=== PATIENT | male | born 1980 | race Caucasian/White ===

== ENCOUNTER → 2016-05-31 | Outpatient (CLI) | payer BC ==
[~2016-05-31] MED LIST: ATV/1 PO; FLVHFA110 INH; IBUP-103 PO; LEVO-14 PO; LISI-461 PO; MONT1TAB5 PO; OXYM0.0592; VNTHFA/IN INH
--- NOTE | 2016-05-31 10:53 | DIAGNOSTIC IMAGING REPORT ---
TESTICULAR ULTRASOUND CLINICAL HISTORY: TESTICULAR PAIN COMPARISON STUDY: No previous studies for comparison. FINDINGS: The right testis measures 47 x 25 x 21 mm. The left testis measures 44 x 28 x 21 mm. No intratesticular masses were visualized. There is no evidence of testicular torsion. There is a 6 mm right-sided epididymal cyst. There is no evidence of epididymal hyperemia. IMPRESSION: 1. No evidence of intratesticular mass. No evidence of testicular torsion 2. 6 mm right-sided epididymal cyst Electronically signed by: Abdullahi Loera M.D. 05/31/2016 10:51 AM Dictated Date/Time: 05/31/2016 10:50 AM
== END | disposition home or self-care (01) ==
LOC: C.ULTRBC 10:26
PROVIDERS: ATTEND Family Medicine
DX: N50.3 Cyst of epididymis (principal)

== ENCOUNTER → 2016-08-20 | Outpatient (CLI) | payer BC ==
--- NOTE | 2016-08-20 09:01 | DIAGNOSTIC IMAGING REPORT ---
THYROID ULTRASONOGRAPHY CLINICAL HISTORY: HYPERTHYROIDISM COMPARISON STUDY: No previous studies for comparison. FINDINGS: The right lobe of the thyroid measures 3.9 x 1.1 x 1.4 cm. There is a 14 mm calcified nodule within or medially posterior to the right lobe of the thyroid. It is difficult to determine with this is intrinsic or extrinsic to the thyroid gland. The left lobe of thyroid measures 6.7 x 1.7 x 3.4 cm. There is a large circumscribed left lobe thyroid nodule which is predominately solid. This contains a few echogenic foci, likely represent colloid although calcifications could appear similar. This nodule measures 4.8 cm in maximal diameter. IMPRESSION: 1. Dominant 4.8 cm left lobe thyroid nodule. Fine-needle aspiration biopsy is recommended follow-up 2. 14 mm nodule, within or abutting the posterior aspect of the right lobe of the thyroid. This nodule contains calcifications. Fine needle aspiration biopsy is recommended. Electronically signed by: Abdullahi Loera M.D. 08/20/2016 8:59 AM Dictated Date/Time: 08/20/2016 8:57 AM
== END | disposition home or self-care (01) ==
LOC: C.ULTRBC 07:56
PROVIDERS: ATTEND Family Medicine
DX: E05.90 Thyrotoxicosis, unspecified without thyrotoxic crisis or storm (principal); R94.6 Abnormal results of thyroid function studies; E04.2 Nontoxic multinodular goiter

== ENCOUNTER → 2016-08-26 | Outpatient (CLI) | payer BC ==
--- NOTE | 2016-08-26 11:03 | Discharge Instructions ---
Discharge Instructions Procedure Procedure Date: Aug 26, 2016. Reason for visit: Thyroid Lesion. Discharge Discharge Date: Aug 26, 2016. Discharge Diagnosis: bilateral thyroid nodules Instructions Activity Recommendations: No limitations Return to School/Work: no limitations Recommended Home Diet: Resume Previous Diet Provider Instructions: ACTIVITY RECOMMENDATIONS: * Rest today. * Resume regular activity in one day. MEDICATIONS: * May take Tylenol or Ibuprofen as needed for pain. DIET: * Resume previous diet. SPECIAL CARE INSTRUCTIONS: Call your doctor if: * Temperature above 101 degrees F. * Pain not relieved by pain medicine ordered. * Increased drainage or redness from incision. * Notify your doctor with any questions or concerns. Call your doctor or go to the nearest Emergency Department if you experience: * Increased chest pain or shortness of breath. FOLLOW UP VISIT: Follow-up with Referring Physician as scheduled. Allergies Coded Allergies: Penicillins (Verified Allergy, Unknown, Unk, 04/14/16) Justino Philip Recommendations: Call your doctor if: * Temperature above 101 degrees * Pain not relieved by pain medicine ordered * There is increased drainage or redness from any incision * You have any unanswered questions or concerns. Your Doctors Instructions noted above were prepared by provider Kayden Calderon. Patient Signature Section: Patient Instructions Signature Page Jean-Pierre Carbajal Patient (or Guardian) Signature/Date: I have read and understand the instructions given to me by my caregivers. Caregiver/RN/Doctor Signature/Date: The above-named patient and/or guardian has received patient instructions on this date. + Original Patient Signature Page (only) stays with chart. Please make copy for patient.
--- NOTE | 2016-08-26 11:25 | DIAGNOSTIC IMAGING REPORT ---
ULTRASOUND-GUIDED FINE-NEEDLE ASPIRATION OF A RIGHT AND LEFT THYROID NODULE HISTORY: Bilateral thyroid nodules COMPARISON: Thyroid ultrasound 08/20/2016 PROCEDURE: Written informed consent was obtained. The neck was prepped and draped in the usual sterile fashion. 1% lidocaine was used for local anesthesia. A total of 2 passes using a 25-gauge needle were made through left thyroid nodule and a single pass using a 25-gauge needle was made through the right thyroid nodule under ultrasound guidance. Specimens were given to the on-site pathologist who determined adequate tissue for diagnosis. The patient tolerated the procedure well. There were no immediate locations. IMPRESSION: Successful ultrasound-guided fine-needle aspiration of bilateral thyroid nodules. Electronically signed by: Kayden Calderon M.D. 08/26/2016 11:23 AM Dictated Date/Time: 08/26/2016 11:22 AM
== END | disposition home or self-care (01) ==
LOC: C.ULTR 09:54
PROVIDERS: ATTEND Family Medicine
DX: E07.89 Other specified disorders of thyroid (principal); E05.90 Thyrotoxicosis, unspecified without thyrotoxic crisis or storm; R94.6 Abnormal results of thyroid function studies

== ENCOUNTER → 2016-10-02 | Outpatient (CLI) | payer BC ==
[2016-10-02 12:20] LABS: ALT/SGPT 57 U/L (12-78); BLOOD UREA NITROGEN 8 mg/dl (7-18); BUN/CREATININE RATIO 10.7 (10-20); CARBON DIOXIDE 29 mmol/L (21-32); CHLORIDE 106 mmol/L (98-107); CHOLESTEROL 116 mg/dl (0-200); CREATININE 0.75 mg/dl (0.60-1.40); GLUCOSE 115 mg/dl (70-99); MAGNESIUM 1.8 mg/dl (1.8-2.4); POTASSIUM 4.8 mmol/L (3.5-5.1); SODIUM 140 mmol/L (136-145); TRIGLYCERIDES 107 mg/dl (0-150); VERY LOW DENSITY LIPOPROT CALC 21 mg/dl
[2016-10-02 12:29] LABS: ALB/GLOB RATIO 1.1 (0.9-2); ALKALINE PHOSPHATASE 111 U/L (45-117); AST/SGOT 30 U/L (15-37); CHOLESTEROL/HDL RATIO 3.1; HDL CHOLESTEROL 38 mg/dl; LDL CHOLESTEROL CALCULATED 57 mg/dl; PHOSPHORUS 1.7 mg/dl (2.5-4.9); THYROID STIMULATING HORMONE < 0.005 uIu/ml (0.300-4.500)
[2016-10-02 12:32] LABS: CALCIUM 9.7 mg/dl (8.5-10.1)
[2016-10-02 13:03] LABS: ESTIMATED AVERAGE GLUCOSE 105 mg/dl; HA1C FLAG Normal (Normal)
[2016-10-04 14:35] LABS: MICROSOMAL AB <1 IU/ML (<9); TSI <89 % baseline (<140)
--- NOTE | 2016-10-07 09:17 | CODING QUERY MEDICAL NECESSITY ---
SUPPORTING DIAGNOSIS NEEDED Dr. Shi, A supporting diagnosis is required for the test/procedure performed on this patient in order for us to be reimbursed by the patient's insurance. Please provide a supporting diagnosis for the following test/procedure listed below next to the test name along with your signature. *If there is no additional diagnosis for this patient that would support the following test/procedure please document that below next to the test/procedure. Test(s)/Procedure(s) that require a supporting diagnosis: * ([id number]) VITAMIN D ASSAY DIAGNOSIS: * ([id number]) B12 VITAMIN LEVEL DIAGNOSIS: * 23071 GLYCATED HEMOGLOBIN DIAGNOSIS: DATE OF SERVICE: 10/02/16 Provider Signature: Date: Thank you Carlos Enrique Bingham [facility] Information Management Once completed, please kindly fax back to [phone] For questions please call [phone]
== END | disposition home or self-care (01) ==
LOC: C.LAB1850 10:21
PROVIDERS: ATTEND Internal Medicine Endocrinology, Diabetes & Metabolism
DX: E05.90 Thyrotoxicosis, unspecified without thyrotoxic crisis or storm (principal); R29.3 Abnormal posture; E83.51 Hypocalcemia; R73.9 Hyperglycemia, unspecified; R42 Dizziness and giddiness

== ENCOUNTER → 2016-12-03 | Outpatient (CLI) | payer BC ==
[2016-12-03 14:23] LABS: COMPLETE YES; EOS % 1.4 %; HEMATOCRIT 47.2 % (42-52); LYMPH % 40.8 %; LYMPH ABS # 1.98 K/uL (1.2-3.4); MEAN CORPUSCULAR HEMOGLOBIN 28.3 pg (25-34); MEAN CORPUSCULAR HGB CONC 33.7 g/dl (32-36); MEAN PLATELET VOLUME 12.1 fL (7.4-10.4); MONO % 12.2 %; NEUT % 45.6 %; PLATELET COUNT 195 K/uL (130-400); RED BLOOD COUNT 5.62 M/uL (4.7-6.1); WHITE BLOOD COUNT 4.85 K/uL (4.8-10.8)
[2016-12-03 17:14] LABS: THYROID STIMULATING HORMONE < 0.005 uIu/ml (0.300-4.500)
== END | disposition home or self-care (01) ==
LOC: C.LABBC 12:21
PROVIDERS: ATTEND Internal Medicine Endocrinology, Diabetes & Metabolism
DX: E05.20 Thyrotoxicosis with toxic multinodular goiter without thyrotoxic crisis or storm (principal)

== ENCOUNTER → 2017-01-06 | Outpatient (CLI) | payer BC ==
[2017-01-06 14:26] LABS: THYROID STIMULATING HORMONE < 0.005 uIu/ml (0.300-4.500)
== END | disposition home or self-care (01) ==
LOC: C.LABBC 11:50
PROVIDERS: ATTEND Internal Medicine Endocrinology, Diabetes & Metabolism
DX: E05.20 Thyrotoxicosis with toxic multinodular goiter without thyrotoxic crisis or storm (principal)

== ENCOUNTER → 2017-01-17 | Outpatient (CLI) | payer BC ==
--- NOTE | 2017-01-17 10:09 | DIAGNOSTIC IMAGING REPORT ---
I-131 THERAPY FOR HYPERTHYROIDISM INITIAL TREATMENT CLINICAL HISTORY: TOXIC MULTINODULAR GOITER COMPARISON STUDY: Thyroid uptake and scan dated 10/21/2016 FINDINGS: A timeout was performed. The risks the procedure were explained the patient and informed consent was obtained. Posttreatment precautions were explained in detail to the patient. The patient demonstrated excellent understanding. The patient was administered an oral capsule containing 25.2 mCi of I-131. The patient is to be followed up by Dr. Shi. IMPRESSION: Initial I-131 therapy for hyperthyroidism with oral capsule containing 25.2 mCi of I-131 Electronically signed by: Abdullahi Loera M.D. 01/17/2017 10:08 AM Dictated Date/Time: 01/17/2017 10:07 AM
== END | disposition home or self-care (01) ==
LOC: C.NUCL 08:59
PROVIDERS: ATTEND Internal Medicine Endocrinology, Diabetes & Metabolism
DX: E05.20 Thyrotoxicosis with toxic multinodular goiter without thyrotoxic crisis or storm (principal)

== ENCOUNTER → 2017-03-05 | Outpatient (CLI) | payer BC ==
[2017-03-05 13:35] LABS: THYROID STIMULATING HORMONE 6.85 uIu/ml (0.300-4.500)
== END | disposition home or self-care (01) ==
LOC: C.LABBC 12:04
PROVIDERS: ATTEND Internal Medicine Endocrinology, Diabetes & Metabolism
DX: E05.20 Thyrotoxicosis with toxic multinodular goiter without thyrotoxic crisis or storm (principal)

== ENCOUNTER → 2017-04-18 | Outpatient (CLI) | payer BC ==
[2017-04-18 17:29] LABS: THYROID STIMULATING HORMONE 0.023 uIu/ml (0.300-4.500)
== END | disposition home or self-care (01) ==
LOC: C.LABBC 12:25
PROVIDERS: ATTEND Internal Medicine Endocrinology, Diabetes & Metabolism
DX: E89.0 Postprocedural hypothyroidism (principal)

== ENCOUNTER → 2017-06-06 | Outpatient (CLI) | payer OTHER | END | disposition home or self-care (01) | LOC: C.LABBC 11:38 | PROVIDERS: ATTEND Internal Medicine Endocrinology, Diabetes & Metabolism | DX: E89.0 Postprocedural hypothyroidism (principal) ==

== ENCOUNTER → 2017-07-14 | Outpatient (CLI) | payer OTHER | END | disposition home or self-care (01) | LOC: C.LABBC 11:13 | PROVIDERS: ATTEND Internal Medicine Endocrinology, Diabetes & Metabolism | DX: E89.0 Postprocedural hypothyroidism (principal) ==